=== PATIENT | male | born 1995 | race Caucasian/White ===

== ENCOUNTER 2023-05-29 19:54 | Emergency (ER) | payer MEDICAID ==
[~2023-05-29] VITALS: Ht 167.6 cm; Wt 64.2 kg
[2023-05-29 19:59] VITALS: O2SAT 96
[2023-05-29] MEDS ORDERED: KETOROLAC 60MG/2ML VIAL IM ONE (21:00)
[2023-05-29] MEDS ORDERED: FENTANYL CITRATE/PF 50MCG/ML 2ML VIAL IM ONE (22:15)
[2023-05-29] MEDS ORDERED: IBUPROFEN 400MG TABLET PO NR (23:15)
[2023-05-29] MEDS ORDERED: HYDROCODONE/ACETAMINOPHEN 10/325MG TABLET PO NR (23:15)
[2023-05-30] VITALS: BP 121/73; PULSE 86; RESP 16; TEMP 98.7
[2023-05-30] MEDS ORDERED: HYDR-4001 MT (01:13)
[2023-05-30] MEDS ORDERED: IBUP-2030 MT (01:13)
== END 2023-05-30 01:27 | disposition home or self-care (01) ==
LOC: ER 19:54
DX: S52.92XA Unspecified fracture of left forearm, initial encounter for closed fracture (principal); X58.XXXA Exposure to other specified factors, initial encounter; Y93.89 Activity, other specified; Y92.89 Other specified places as the place of occurrence of the external cause; Y99.8 Other external cause status
CPT/HCPCS: 73030; 73080; 73090; 73110; 96372; 99284; J3010; J1885; Z7610 ×4; A4565